=== PATIENT | male | born 1940 | race Caucasian/White ===

== ENCOUNTER 2017-06-13 12:13 | Inpatient (IN) | payer MEDICARE, OTHER ==
[~2017-06-13] VITALS: Ht 167.6 cm; Wt 81.8 kg
[~2017-06-13 12:13] MED LIST: AMOX250C4 PO; ASPI81TA39 PO; CARV25 PO; CLOP75 PO; CLOT15C TP; FURO40 PO; LACT30L PO; LEVE500T53 PO; LISI-661 PO; MEMA10TA11 PO; SIMV-261 PO; TAMS0.4C32 PO; ZIPR20CA2 PO
[2017-06-13] MEDS ORDERED: LURA120T PO (12:38)
[2017-06-13] MEDS ORDERED: VITAD1000 PO (12:38)
[2017-06-13] MEDS ORDERED: RISP1 PO (12:38)
[2017-06-13] MEDS ORDERED: TRAZ-144 PO (12:38)
[2017-06-13] MEDS ORDERED: FERR-89 PO (12:38)
[2017-06-13] MEDS ORDERED: QUET100T PO (12:38)
[2017-06-13] MEDS ORDERED: DOCU-275 PO (12:38)
[2017-06-13] MEDS ORDERED: FAMO20 PO (12:38)
[2017-06-13] MEDS ORDERED: ACETAMINOPHEN 500 MG TABLET PO ONE (13:00)
[2017-06-13] MEDS ORDERED: FURO20 PO (13:06)
[2017-06-13 13:23] LABS: BASOPHILS % (AUTO) 0.4 % (0.0-2.0); EOSINOPHILS % (AUTO) 4.1 % (1.0-6.0); HEMATOCRIT 37.8 % (41-53); HEMOGLOBIN 12.9 g/dL (13.5-17.5); LYMPHOCYTES # (AUTO) 1.3 K/uL (1.0-4.8); MEAN CORPUSCULAR HEMOGLOBIN 30.4 pg (26.0-34.0); MEAN CORPUSCULAR VOLUME 89 fL (80-100); MONOCYTES # (AUTO) 0.8 K/uL (0.1-1.0); MONOCYTES % (AUTO) 6.8 % (2.0-9.0); NEUTROPHILS % (AUTO) 77.7 % (40.0-70.0); PLATELET COUNT (AUTO) 224 K/uL (150-450); RED BLOOD CELL COUNT(AUTO) 4.23 MIL/uL (4.50-5.90)
[2017-06-13 13:35] LABS: ANION GAP 9 mmol/L (8-16); CALCIUM, TOTAL 8.6 mg/dL (8.8-10.5); CARBON DIOXIDE 28 mmol/L (22-29); CHLORIDE 105 mmol/L (98-107); CREATININE 1.07 mg/dL (0.60-1.30); GLOMERULAR FILTR. RATE CALC > 60 mL/min (>60); GLUCOSE,RANDOM 119 mg/dL (70-110); POTASSIUM 4.2 mmol/L (3.5-5.1); SODIUM SERUM 142 mmol/L (136-145); UREA NITROGEN, BLOOD 29 mg/dL (7-18)
[2017-06-13 13:40] LABS: ALANINE AMINOTRANSFERASE 22 U/L (12-78); ALBUMIN 2.9 g/dL (3.4-5.0); ALKALINE PHOSPHATASE 112 U/L (46-116); ASPARTATE AMINOTRANSFERASE 27 U/L (15-37); BILIRUBIN,TOTAL 1.1 mg/dL (0.1-1.0); TOTAL PROTEIN, SERUM 7.5 g/dL (6.4-8.2)
[2017-06-13] MEDS ORDERED: MORPHINE SULFATE 4 MG/ML SYRINGE IVP PRN (14:15)
[2017-06-13] MEDS ORDERED: ACETAMINOPHEN 325 MG TABLET PO PRN ×2 (14:15→18:00)
[2017-06-13] MEDS ORDERED: 0.9% SODIUM CHLORIDE 10 ML SYRINGE IVP PRN (14:15)
[2017-06-13] MEDS ORDERED: ONDANSETRON HCL 4 MG/2 ML VIAL IVP PRN ×2 (14:15→18:00)
[2017-06-13 14:36] LABS: PROTHROMBIN TIME 10.3 SEC (9.4-11.6)
[2017-06-13 16:48] VITALS: BP 112/56
[2017-06-13] MEDS ORDERED: INSULIN ASPART 100 UNITS/ML SQ PRN (18:00)
[2017-06-13] MEDS ORDERED: MAGNESIUM HYDROXIDE SUSPENSION 30 ML UDCUP PO PRN (18:00)
[2017-06-13] MEDS ORDERED: DEXTROSE 50%-WATER 25 GM/50 ML SYRINGE IVP PRN (18:00)
[2017-06-13 18:17] LABS: GLUCOMETER DEV NAME(LOC) 6N 1E; GLUCOSE,POINT OF CARE 115 MG/DL (70-110)
[2017-06-13 19:32] VITALS: BP 131/74
[2017-06-13] MEDS: DOCUSATE SODIUM 100 MG CAPSULE PO SCH (20:11)
[2017-06-13] MEDS ORDERED: HEPARIN SODIUM,PORCINE 5,000 UNITS/ML VIAL SQ ONE (21:00)
[2017-06-14 00:59] VITALS: BP 131/74
[2017-06-14] MEDS: MORPHINE SULFATE 2 MG/ML SYRINGE IVP PRN (01:24)
[2017-06-14 05:15] VITALS: BP 123/60
[2017-06-14 05:33] LABS: GLUCOMETER DEV NAME(LOC) 6N 1E; GLUCOSE,POINT OF CARE 116 MG/DL (70-110)
[2017-06-14 07:12] VITALS: BP 134/78
[2017-06-14 07:47] LABS: BASOPHILS % (AUTO) 0.5 % (0.0-2.0); EOSINOPHILS % (AUTO) 6.1 % (1.0-6.0); HEMATOCRIT 34.4 % (41-53); HEMOGLOBIN 11.7 g/dL (13.5-17.5); LYMPHOCYTES # (AUTO) 1.5 K/uL (1.0-4.8); LYMPHOCYTES % (AUTO) 11.8 % (22.0-44.0); MEAN CORPUSCULAR HEMOGLOBIN 30.1 pg (26.0-34.0); MEAN CORPUSCULAR HGB CONC 34.1 G/dL (31.0-37.0); MEAN CORPUSCULAR VOLUME 88 fL (80-100); MONOCYTES # (AUTO) 0.9 K/uL (0.1-1.0); MONOCYTES % (AUTO) 7.5 % (2.0-9.0); NEUTROPHILS # (AUTO) 9.1 K/uL (1.8-7.7); NEUTROPHILS % (AUTO) 74.1 % (40.0-70.0); PLATELET COUNT (AUTO) 230 K/uL (150-450); RED BLOOD CELL COUNT(AUTO) 3.89 MIL/uL (4.50-5.90); RED CELL DISTRIBUTION WIDTH 15.7 % (11.5-14.5)
[2017-06-14 07:51] LABS: ANION GAP 8 mmol/L (8-16); CALCIUM, TOTAL 8.3 mg/dL (8.8-10.5); CARBON DIOXIDE 25 mmol/L (22-29); CHLORIDE 103 mmol/L (98-107); CREATININE 0.97 mg/dL (0.60-1.30); GLOMERULAR FILTR. RATE CALC > 60 mL/min (>60); GLUCOSE,RANDOM 111 mg/dL (70-110); POTASSIUM 4.1 mmol/L (3.5-5.1); SODIUM SERUM 136 mmol/L (136-145); UREA NITROGEN, BLOOD 27 mg/dL (7-18)
[2017-06-14] MEDS ORDERED: RINGERS SOLUTION,LACTATED 1,000 ML IV ONE ×3 (08:30→09:31)
[2017-06-14] MEDS: PANTOPRAZOLE SODIUM 40 MG DR TABLET PO SCH (09:00)
[2017-06-14] MEDS: DOCUSATE SODIUM 100 MG CAPSULE PO SCH ×2 (09:00→19:52)
[2017-06-14] MEDS ORDERED: ALBUTEROL SULFATE 2.5 MG/0.5 ML NEB SOLUTION NEB PRN (09:15)
[2017-06-14] MEDS ORDERED: CeFAZolin 1 GM/DEXTROSE 50 ML IV SCH (09:30)
[2017-06-14] MEDS ORDERED: ACETAMINOPHEN 1000 MG/ISO-OSM 100 ML IV PRN (09:45)
[2017-06-14] MEDS: BUPIVACAINE LIPOSOME/PF 1.3%-13.3MG/ML SUSPENSION 20 ML VIAL INJ ONE ×2 (10:00→11:34)
[2017-06-14] MEDS ORDERED: HYDROmorphone 2 MG/ML SYRINGE IVP PRN (11:15)
[2017-06-14] MEDS ORDERED: FentaNYL CITRATE-PF 100 MCG/2 ML VIAL IVP PRN (11:15)
[2017-06-14] MEDS ORDERED: EPHEDrine SULFATE 50 MG/ML VIAL IM ONE (12:00)
[2017-06-14] MEDS ORDERED: ROCURONIUM BROMIDE 10 MG/ML 5 ML VIAL IVP ONE (12:00)
[2017-06-14] MEDS ORDERED: ONDANSETRON HCL 4 MG/2 ML VIAL IVP ONE (12:00)
[2017-06-14] MEDS ORDERED: 0.9% SODIUM CHLORIDE 10 ML VIAL IVP ONE (12:00)
[2017-06-14] MEDS ORDERED: PROPOFOL 1% 20 ML VIAL IVP ONE (12:00)
[2017-06-14] MEDS ORDERED: PHENYLEPHRINE HCL 10 MG/ML VIAL IVP ONE (12:00)
[2017-06-14] MEDS ORDERED: GLYCOPYRROLATE 0.2 MG/ML VIAL IM ONE (12:00)
[2017-06-14] MEDS ORDERED: NEOSTIGMINE METHYLSULFATE 1 MG/ML 10 ML VIAL IVP ONE (12:00)
[2017-06-14] MEDS ORDERED: FentaNYL CITRATE-PF 100 MCG/2 ML VIAL IVP ONE (12:00)
[2017-06-14 15:49] VITALS: BP 127/75
[2017-06-14 17:23] LABS: GLUCOMETER DEV NAME(LOC) 6N 2D; GLUCOSE,POINT OF CARE 140 MG/DL (70-110)
[2017-06-14] MEDS: CeFAZolin SODIUM 1 GM in DEXTROSE 5%-WATER 10 ML IV SCH (18:52)
[2017-06-14] MEDS: LevETIRAcetam 500 MG TABLET PO SCH (19:52)
[2017-06-14] MEDS: SIMVASTATIN 40 MG TABLET PO SCH (19:52)
[2017-06-14 20:12] VITALS: BP 126/74
[2017-06-14] MEDS: HYDROCODONE/ACETAMINOPHEN 5-325 MG TABLET PO PRN (23:42)
[2017-06-14 23:50] VITALS: BP 143/65
[2017-06-15] MEDS ORDERED: HEPARIN SODIUM,PORCINE 5,000 UNITS/ML VIAL SQ SCH
[2017-06-15] MEDS: MORPHINE SULFATE 2 MG/ML SYRINGE IVP PRN ×2 (01:15→06:32)
[2017-06-15] MEDS: CeFAZolin SODIUM 1 GM in DEXTROSE 5%-WATER 10 ML IV SCH ×2 (02:16→12:27)
[2017-06-15 03:54] VITALS: BP 143/75
[2017-06-15 06:14] LABS: GLUCOMETER DEV NAME(LOC) 6N 2D; GLUCOSE,POINT OF CARE 132 MG/DL (70-110)
[2017-06-15 06:21] LABS: BASOPHILS % (AUTO) 0.5 % (0.0-2.0); EOSINOPHILS % (AUTO) 5.5 % (1.0-6.0); HEMATOCRIT 30.9 % (41-53); HEMOGLOBIN 10.6 g/dL (13.5-17.5); LYMPHOCYTES # (AUTO) 1.4 K/uL (1.0-4.8); LYMPHOCYTES % (AUTO) 10.5 % (22.0-44.0); MEAN CORPUSCULAR HEMOGLOBIN 30.3 pg (26.0-34.0); MEAN CORPUSCULAR HGB CONC 34.4 G/dL (31.0-37.0); MEAN CORPUSCULAR VOLUME 88 fL (80-100); MONOCYTES # (AUTO) 1.3 K/uL (0.1-1.0); MONOCYTES % (AUTO) 9.9 % (2.0-9.0); NEUTROPHILS # (AUTO) 9.8 K/uL (1.8-7.7); NEUTROPHILS % (AUTO) 73.6 % (40.0-70.0); PLATELET COUNT (AUTO) 244 K/uL (150-450); RED CELL DISTRIBUTION WIDTH 15.8 % (11.5-14.5)
[2017-06-15 07:53] VITALS: BP 130/74
[2017-06-15] MEDS: OXYGEN THERAPY IH SCH ×2 (08:00→20:00)
[2017-06-15] MEDS: ASPIRIN 81 MG CHEWABLE TABLET PO SCH (08:44)
[2017-06-15] MEDS: LevETIRAcetam 500 MG TABLET PO SCH ×2 (08:44→20:35)
[2017-06-15] MEDS: PANTOPRAZOLE SODIUM 40 MG DR TABLET PO SCH (08:44)
[2017-06-15] MEDS: MULTIVITAMINS WITH MINERALS, THERAPEUTIC TABLET PO SCH (08:45)
[2017-06-15] MEDS: DOCUSATE SODIUM 100 MG CAPSULE PO SCH ×2 (08:45→20:35)
[2017-06-15] MEDS ORDERED: ENOXAPARIN SODIUM 80 MG/0.8 ML PF SYRINGE SQ SCH (09:00)
[2017-06-15 12:05] VITALS: BP 116/72
[2017-06-15] MEDS: HYDROCODONE/ACETAMINOPHEN 5-325 MG TABLET PO PRN (12:59)
[2017-06-15 13:08] LABS: GLUCOMETER DEV NAME(LOC) 6N 1E; GLUCOSE,POINT OF CARE 155 MG/DL (70-110)
[2017-06-15 15:08] LABS: APPEARANCE,URINE CLEAR (CLEAR); BILIRUBIN,URINE NEGATIVE (NEGATIVE); GLUCOSE, URINE (UA) NEGATIVE (NEGATIVE); KETONES,URINE NEGATIVE (NEGATIVE); LEUKOCYTE ESTERASE ,URINE SMALL (NEGATIVE); NITRATE,URINE NEGATIVE (NEGATIVE); OCCULT BLOOD,URINE NEGATIVE (NEGATIVE); PH,URINE 5.5 (5.0-8.0); PROTEIN,URINE TRACE (NEGATIVE)
[2017-06-15 15:22] LABS: BACTERIA,URINE None Seen /HPF (None Seen); RBC,URINE 0-2 /HPF (0-2); SQUAMOUS EPITHELIAL CELL,UR Few /LPF (None Seen)
[2017-06-15 16:40] VITALS: BP 127/76
[2017-06-15] MEDS: QUEtiapine FUMARATE 100 MG TABLET PO SCH ×2 (17:12→20:35)
[2017-06-15 18:19] LABS: GLUCOMETER DEV NAME(LOC) 6N 2D; GLUCOSE,POINT OF CARE 114 MG/DL (70-110)
[2017-06-15 19:48] LABS: GLUCOMETER DEV NAME(LOC) 6N 1E; GLUCOSE,POINT OF CARE 135 MG/DL (70-110)
[2017-06-15 20:11] VITALS: BP 128/59
[2017-06-15] MEDS: SIMVASTATIN 40 MG TABLET PO SCH (20:35)
[2017-06-15 23:55] VITALS: BP 104/63
[2017-06-16 02:17] LABS: GLUCOMETER DEV NAME(LOC) 6N 1E; GLUCOSE,POINT OF CARE 114 MG/DL (70-110)
[2017-06-16 04:11] VITALS: BP 111/61
[2017-06-16] MEDS: HYDROCODONE/ACETAMINOPHEN 5-325 MG TABLET PO PRN ×3 (05:37→21:17)
[2017-06-16 06:23] LABS: GLUCOMETER DEV NAME(LOC) 6N 1E; GLUCOSE,POINT OF CARE 122 MG/DL (70-110)
[2017-06-16 06:46] LABS: BASOPHILS % (AUTO) 0.2 % (0.0-2.0); EOSINOPHILS % (AUTO) 8.8 % (1.0-6.0); HEMATOCRIT 30.8 % (41-53); HEMOGLOBIN 10.5 g/dL (13.5-17.5); LYMPHOCYTES # (AUTO) 1.5 K/uL (1.0-4.8); LYMPHOCYTES % (AUTO) 12.6 % (22.0-44.0); MEAN CORPUSCULAR HEMOGLOBIN 30.3 pg (26.0-34.0); MEAN CORPUSCULAR HGB CONC 34.1 G/dL (31.0-37.0); MEAN CORPUSCULAR VOLUME 89 fL (80-100); MONOCYTES # (AUTO) 0.9 K/uL (0.1-1.0); MONOCYTES % (AUTO) 7.6 % (2.0-9.0); NEUTROPHILS # (AUTO) 8.2 K/uL (1.8-7.7); NEUTROPHILS % (AUTO) 70.8 % (40.0-70.0); PLATELET COUNT (AUTO) 239 K/uL (150-450); RED BLOOD CELL COUNT(AUTO) 3.46 MIL/uL (4.50-5.90); RED CELL DISTRIBUTION WIDTH 15.8 % (11.5-14.5)
[2017-06-16 06:59] LABS: ANION GAP 8 mmol/L (8-16); CALCIUM, TOTAL 8.4 mg/dL (8.8-10.5); CARBON DIOXIDE 26 mmol/L (22-29); CHLORIDE 104 mmol/L (98-107); CREATININE 0.98 mg/dL (0.60-1.30); GLOMERULAR FILTR. RATE CALC > 60 mL/min (>60); GLUCOSE,RANDOM 120 mg/dL (70-110); POTASSIUM 4.3 mmol/L (3.5-5.1); SODIUM SERUM 138 mmol/L (136-145); UREA NITROGEN, BLOOD 29 mg/dL (7-18)
[2017-06-16 07:30] VITALS: BP 111/73
[2017-06-16] MEDS: OXYGEN THERAPY IH SCH (08:00)
[2017-06-16] MEDS ORDERED: ENOXAPARIN SODIUM 40 MG/0.4 ML PF SYRINGE SQ SCH (09:00)
[2017-06-16] MEDS: DOCUSATE SODIUM 100 MG CAPSULE PO SCH ×2 (09:30→19:54)
[2017-06-16] MEDS: PANTOPRAZOLE SODIUM 40 MG DR TABLET PO SCH (09:30)
[2017-06-16] MEDS: QUEtiapine FUMARATE 100 MG TABLET PO SCH ×3 (09:30→19:54)
[2017-06-16] MEDS: ASPIRIN 81 MG CHEWABLE TABLET PO SCH (09:30)
[2017-06-16] MEDS: LevETIRAcetam 500 MG TABLET PO SCH ×2 (09:30→19:54)
[2017-06-16] MEDS: MULTIVITAMINS WITH MINERALS, THERAPEUTIC TABLET PO SCH (09:30)
[2017-06-16 11:35] VITALS: BP 107/58
[2017-06-16 11:38] LABS: GLUCOMETER DEV NAME(LOC) 6N 1E; GLUCOSE,POINT OF CARE 111 MG/DL (70-110)
[2017-06-16 15:33] VITALS: BP 115/59
[2017-06-16 18:03] LABS: GLUCOMETER DEV NAME(LOC) 6N 2D; GLUCOSE,POINT OF CARE 114 MG/DL (70-110)
[2017-06-16 19:36] VITALS: BP 121/77
[2017-06-16] MEDS: SIMVASTATIN 40 MG TABLET PO SCH (19:54)
[2017-06-17 02:12] LABS: GLUCOMETER DEV NAME(LOC) 6N 2D; GLUCOSE,POINT OF CARE 106 MG/DL (70-110)
== END 2017-06-16 21:20 | disposition home or self-care (01) | DRG 543 ==
LOC: EMS 12:16 → 6N 15:03
PROVIDERS: ADMIT Internal Medicine; ATTEND Internal Medicine
DX: M84.459A Pathological fracture, hip, unspecified, initial encounter for fracture (principal); I69.354 Hemiplegia and hemiparesis following cerebral infarction affecting left non-dominant side; F25.0 Schizoaffective disorder, bipolar type; I11.0 Hypertensive heart disease with heart failure; I50.9 Heart failure, unspecified; E11.9 Type 2 diabetes mellitus without complications; F01.50 Vascular dementia, unspecified severity, without behavioral disturbance, psychotic disturbance, mood disturbance, and anxiety; E66.9 Obesity, unspecified; M85.80 Other specified disorders of bone density and structure, unspecified site; F41.9 Anxiety disorder, unspecified; Z79.899 Other long term (current) drug therapy; Z95.0 Presence of cardiac pacemaker; Z68.29 Body mass index [BMI] 29.0-29.9, adult
CPT/HCPCS: 72170; 73503; 73552; 82652; 82962; 86850; 86900; 86901; 87081; 93005; 93306; 97163; 97530; 99285; C9290; J0131; J0690; J1644; J1650; J2270; J2370; J2405; J2704; J3010; J3490; J7060; J7120

== ENCOUNTER 2018-09-06 13:14 | Emergency (ER) | payer MEDICARE, OTHER ==
[~2018-09-06] VITALS: Ht 167.6 cm; Wt 81.8 kg
[~2018-09-06 13:14] MED LIST changes: -AMOX250C4 PO; -ASPI81TA39 PO; -CARV25 PO; -CLOP75 PO; +CLOP75TA3 PO; -CLOT15C TP; +DOCU-275 PO; +FAMO20 PO; +FERR-89 PO; +FURO20 PO; -FURO40 PO; -LACT30L PO; +LURA120T PO; -MEMA10TA11 PO; +QUET100T PO; +RISP1 PO; -TAMS0.4C32 PO; +TRAZ-252 PO; +VITAD1000 PO; -ZIPR20CA2 PO
[2018-09-06 15:19] LABS: GLUCOSE,POINT OF CARE 109 MG/DL (70-110)
[2018-09-06 18:51] VITALS: BP 132/77
== END 2018-09-06 19:22 | disposition home or self-care (01) ==
LOC: EMS 13:22
DX: S63.502A Unspecified sprain of left wrist, initial encounter (principal); I11.0 Hypertensive heart disease with heart failure; I50.9 Heart failure, unspecified; F03.90 Unspecified dementia, unspecified severity, without behavioral disturbance, psychotic disturbance, mood disturbance, and anxiety; F41.9 Anxiety disorder, unspecified; Z95.0 Presence of cardiac pacemaker; Z79.01 Long term (current) use of anticoagulants; Z79.899 Other long term (current) drug therapy; W19.XXXA Unspecified fall, initial encounter; Y93.89 Activity, other specified; Y92.89 Other specified places as the place of occurrence of the external cause; Y99.8 Other external cause status
CPT/HCPCS: 93005